=== PATIENT | male | born 1990 | race Caucasian/White ===

== ENCOUNTER 2023-09-24 18:53 | Emergency (ER) | payer SELFPAY ==
[~2023-09-24] VITALS: Ht 182.9 cm; Wt 85.0 kg
[2023-09-24 18:58] VITALS: BP 127/62; PULSE 102; RESP 16; TEMP 98.6; O2SAT 98
[2023-09-24] MEDS ORDERED: CHLORDIAZEPOXIDE 25MG CAPSULE PO ONE (19:15)
== END 2023-09-24 20:09 | disposition home or self-care (01) ==
LOC: ER 18:53
DX: F10.129 Alcohol abuse with intoxication, unspecified (principal); Y90.9 Presence of alcohol in blood, level not specified
CPT/HCPCS: 99284